=== PATIENT | male | born 1975 | race Caucasian/White ===

== ENCOUNTER 2017-07-11 11:55 | Day surgery (SDC) | payer OTHER ==
[~2017-07-11] VITALS: Ht 190.5 cm; Wt 105.1 kg
[2017-07-11] VITALS (8 sets, daily range): BP systolic 114–131; BP diastolic 74–87; PULSE 70–94; RESP 12–20; O2SAT 96–99
[~2017-07-11 11:55] MED LIST: CeFAZolin 2 Gm/50 mL D5W IV Premix IV SCH; Lactated Ringer's 1,000 ML IV SCH
[2017-07-11] MEDS ORDERED: fentaNYL-PF 50 mCg/mL 2 mL Inj ONE (11:56)
[2017-07-11] MEDS ORDERED: Ondansetron 2 mg/mL 2 mL Inj ONE (11:56)
[2017-07-11] MEDS ORDERED: Propofol 10,000 mCg/mL 20 mL Inj ONE (11:56)
[2017-07-11] MEDS ORDERED: Succinylcholine Chloride 20 mg/mL 5 mL Inj ONE (11:56)
[2017-07-11] MEDS ORDERED: Lactated Ringer's 1,000 ML IV ONE (12:30)
[2017-07-11] MEDS ORDERED: TRAZ-118 PO (13:07)
[2017-07-11] MEDS ORDERED: PRAZ2CAP2 PO (13:07)
[2017-07-11] MEDS ORDERED: VENL75TA3 PO (13:07)
[2017-07-11] MEDS ORDERED: Lactated Ringer's 500 ML IV PRN (16:42)
[2017-07-11] MEDS ORDERED: Lactated Ringer's 1,000 ML IV SCH (16:42)
--- NOTE | 2017-07-11 16:42 | PCM.HPANE ---
Patient Data Date of Service: Jul 11, 2017 Surgeon Admitting Provider: Attending Provider:Florentin Link MD Primary Care Physician:Kelvin Villalpando MD Other Provider:Grey Ritter Anesthesia Reason for Visit Right Clavicle Fracture Ht/WT & BMI Height (Feet): 6 Height (Inches): 3 Weight (Kilograms): 105.1 Body Mass Index 28.00 Allergies Coded Allergies: No Known Allergies (Unverified , 07/11/17) Past Anesthesia History Anesthesia History: Denies:: Abnormal Airway, Anesthesia Reactions, Difficult Intubation, Fam Anesthesia Reaction, Fam Malignant Hypertherm, Malignant Hyperthermia Diabetes History Hx Diabetes?: No MRSA MRSA: No Medications Home Meds Incl Beta Refugio: No Reported Medications Venlafaxine 75 Mg [id number] Mg PO TIDWM Ref 0 07/11/17 Prazosin 2 Mg Capsule2 Mg PO HS 07/11/17 Trazodone 100 Mg [id number] Mg PO HS Ref 0 07/11/17 History History of ENT Problems?: No HEENT History: Denies:: Abnormal Airway Difficult Intubation Dysphagia Hearing Problem Sinus Problem TMJ Denture Type: None Teeth Condition: Within Normal Limits Hx of Heart Problems?: No Cardiovascular History: Denies:: Cardiac Surgery Chest Pain Hypertension Hx of Respiratory Problem?: No Respiratory History: Positive for:: Use of C-PAP Machine (refused use) Denies:: Pneumonia Tuberculosis Hx Neurologic Problems?: No Neurological History: Denies:: Alzheimer's Disease CVA Dementia Dizziness Headaches Multiple Sclerosis Seizures TIA Hx of GI Problems?: No Hx of Problems?: No Genitourinary History: Denies:: HX of Hemodialysis Kidney Stones HX of Peritoneal Dialysis: No Male Hx: Denies:: Prostate Problems Scrotal Mass Testicular Surgery Skin History: Denies:: History Skin Disorders? Pressure Ulcers Hx Musculoskeletal Problems?: Yes Musculoskeletal History: Positive for:: Musculoskeletal Trauma (reason for admit) Denies:: Back Injury Degenerative Joint Fibromyalgia Joint Replacement Myasthenia Gravis Osteoarthritis Psycho Social History: Positive for:: Anxiety Hx Depression Hx Surgeries?: Yes (Shoulder surgery March 2017) Other History: Denies:: Cancer Endocrine Disease Hospitalization Thyroid Disease History Blood Transfusions: Positive for:: Accept Blood Products? Denies:: Blood Transfusions Hx Diabetes: No Hx Alcohol Use: NoHx Substance Use: NoHave You Smoked inLast 12 mo: Yes Approx How Many Cigarettes/day: 20 Stop/Bang Treated for Sleep Apnea?: Yes Do You Have a CPAP Machine?: No Did you bring your Machine? refuses CPAP therapy S-Snoring: Do You Snore Loudly: No T-Tired: feel tired, fatigued: No O-Obsered: Observed not breath: No P-Blood Pressure: treated: No B- Body Mass Index > 35 kg/m2: No A- Age over 50: No N- Neck Large Circumference: Yes G- Gender Male: Yes EVELINE Total Score: 2 Risk Assessment Category Category 1A: Patient has history of documented sleep apnea, and HAS NOT received any narcotic, sedative or anesthesia administration during this stay. Category 1B: Patient has history of documented sleep apnea, and HAS received any narcotic , sedative or anesthesia administration during this stay Category 2: Patient has SUSPECTED Obstructive Sleep Apnea, and HAS received any narcotic , sedative or anesthesia administration during this stay. Category 3: Patient has SUSPECTED Obstructive Sleep Apnea and HAS NOT received narcotic, sedative or anesthesia administration during this stay. Category 4: Outpatient in Procedural Areas with known sleep apnea or who screen positive for High Risk via the STOP/BANG questionnaire. Exam Exam Vital Signs Vital Signs Date Time Temp Pulse Resp B/P Pulse Ox O2 Delivery O2 Flow Rate FiO2 07/11/17 12:30 36.1 90 16 131/83 97 Room Air General Appearance: Alert, Oriented X3, Cooperative HEENT/AIRWAY: MP 1, Neck Movement (Full), Mouth Opening (Wide) Lungs: Clear to Auscultation, Normal Air Movement Heart: Regular Rate/Rhythm, Normal S1, Normal S2 Meds/Labs/Diagnostics Admission Meds Current Medications Lactated Ringer's (Lr) 1,000 ml @ ud STK-MED ONCE IV Last administered on 07/11t 12:30; Start 07/11/17 at 12:30; Stop 07/11/17 at 12:58; Status DC Plan Impression Patient chart reviewed, patient interviewed and anesthestic plan with risks, benefits, and alternatives discussed, and informed consent obtained. NPO per Anesth. Guidelines: Yes ASA Physical Status: ASA2 Mod Systemic Disease Anesthetic Plan: GA Bene/Risks/Altern/Consents: Yes HP Complete Prior to Induction: Yes Fam Lombardo MD Jul 11, 2017 15:58
[2017-07-11] MEDS ORDERED: Labetalol 5 mg/mL 20 mL Inj IV PRN (16:45)
[2017-07-11] MEDS ORDERED: MetoCLOpramide 5 mg/mL 2 mL Inj IVPUSH PRN (16:45)
[2017-07-11] MEDS ORDERED: Atropine 0.4 mg/mL Inj IVPUSH PRN (16:45)
[2017-07-11] MEDS ORDERED: Phenylephrine 10,000 mCg/mL Inj IVPUSH PRN (16:45)
[2017-07-11] MEDS ORDERED: hydrALAZINE 20 mg/mL Inj IVPUSH PRN (16:45)
[2017-07-11] MEDS ORDERED: EPHEDrine Sulfate 50 mg/mL Inj IVPUSH PRN (16:45)
[2017-07-11] MEDS ORDERED: Dexamethasone 4 mg/mL Inj IVPUSH PRN (16:45)
[2017-07-11] MEDS ORDERED: Ondansetron 2 mg/mL 2 mL Inj IVPUSH PRN (16:45)
[2017-07-11] MEDS ORDERED: Ropivacaine-PF 0.5% 30 mL Inj INJ ONE (16:49)
[2017-07-11] MEDS ORDERED: oxyCODONE-Acetamin 5-325 mg Tablet PO PRN (17:40)
--- NOTE | 2017-07-11 17:52 | PCM.ORTHOP ---
Orthopedic Operative Report Date of Service: Jul 11, 2017 Pre Operative Diagnosis Right clavicle nonunion Post Operative Diagnosis Same Procedure Right clavicle hardware removal, open reduction internal fixation with iliac crest autograft harvest Surgeon Surgeon: Florentin Link MD Assistants: Fide Agustin Indication for Procedure Right clavicle nonunion Findings Right clavicle hardware failure, nonunion Details of Procedure Procedure: Right clavicle hardware removal, osteotomy and nonunion takedown with open reduction internal fixation with iliac crest autograft bone grafting ( CPT 26319) Implant: Arthrex precontoured clavicle plate Anesthesia: general ETA Complications: none Estimated Blood Loss: 50 mL Findings: Right clavicle fracture nonunion. Fluoroscopic imaging after ORIF shows good alignment of left clavicle shaft with autograft Specimens: None Patient Status: Patient was extubated and taken to recovery room in stable condition. Narrative: Indications: Santy Lovell is a 41-year-old male with a history of a right clavicle fracture nonunion with pseudoarthrosis. A clear explanation was given to the patient regarding the condition present, and the available conservative and surgical options. It was emphasized that the risks and benefits of surgery include but are not limited to infection, wound healing problems, damage to adjacent structures such as nerves, blood vessels and tendons, residential disability and pain, arthritis, hypersensitivity, deep vein thrombosis, pulmonary embolism, broken hardware, failure of surgery, need for further procedures at time of surgery or later, cast related problems, loss of limb or life. The patient understood that given the longstanding nature of symptoms and that the patient would likely continue to have symptoms despite surgical intervention. The patient was given an explanation and the patient voiced understanding of what to expect after the procedure or surgery, the limitations in activities of daily living, the likely duration for post operative recovery and the instructions that are to be followed. At the end the patient was invited to seek clarification or ask further questions but there were none. The patient voiced understanding of the entire consultation. Description of Procedure: Patient taken to operating room and transferred to operating table in supine position. Time out was performed with both anesthesia and orthopaedics faculty present to confirm details of case to be performed. After time out performed, patient placed under general anesthesia and endotracheal tube secured into place. Once endotracheal tube secured, the patient was placed into the beach-chair position. Patient position was again checked to ensure all bony prominences adequately padded. The right arm, shoulder and clavicle was prepped and draped in the usual sterile fashion to the level of the tourniquet. An incision was made over the fracture site. Dissection was sharply performed down to bone. The previous hardware was removed. The bovie was used to clear soft tissue from the fracture site. Care was taken to avoid any neurovascular structures. There was an uninfected nonunion with pseudarthrosis noted. The fracture was reduced under direct visualization. The devitalized cortical chips were removed. The plate was then applied provisionally and secured to bone with a few solid screw purchase and locking screws secured to plate. Attention was then turned to the right iliac crest. A 4 cm incision within 5 cm of the anterior superior iliac spine was made. Dissection was carried over the iliac table. A 1 cm block was osteotomized and harvested for bone graft in addition to aspiration of the bone marrow (10 cc). 5 cc of Morphine were injected in the pelvic wound prior to closure in layers. The bone graft was then placed in the defect created from the malunion takedown at the fracture site of the clavicle. Fluoroscopy showed reduction of fracture. The wound was thoroughly irrigated by bulb irrigation. Hemostasis was obtained with electrocautery. The wound was closed in layers. The wound was cleaned and dressed with Adaptic, gauze, and tape. The patient was extubated without difficulty and transferred to the PACU in stable condition. CAFE WORKER SURGEON: During the operation, the services of physician health education assistant were medically indicated and necessary to provide exposure of the operative site for the surgical procedure and to maintain the limb in a proper position to carry out the operation safely and efficiently. Without the qualified assistant director of nursing being present, it would have extended the operative procedure and made the procedure technically more difficult to perform. Keep dressing clean dry and intact, do not remove dressing. Return to clinic in 10-14 days for follow-up with me for new steri-strips, obtain additional two- view x-rays of the affected clavicle. Continue sling for comfort and remove sling 3 times daily for elbow, wrist, hand ROM and shoulder pendulum exercises. Follow-up in 6 weeks postop with PA with x-rays and may release to full activity once radiographically healing noted. Please keep the affected extremity elevated when possible. You may use ice and/or heat as needed for comfort. Keep hip wound clean, dry and intact and do not get wet X 2 weeks. I discussed at length the risks, complications and implications of tobacco products and its effect on the treatment plan and outcomes. The patient has voiced understanding and has agreed to cease consumption of such products for a minimum of the duration of the entire course of treatment. Grafts, Implants: Implants-See Implant Record Complications There were no periprocedural complications identified. Condition Stable Anesthetic Administered: GA Catheters: None Output, Estimated Blood Loss: 50 Blood Admin during surgery: No Surgical Cast or Splint: Other Surgical Specimen Removed: No Specimen sent to Pathology: No copies to: Florentin Link MD, Christopher L MD Jul 11, 2017 17:52
[2017-07-11] MEDS: fentaNYL-PF 50 mCg/mL 2 mL Inj IVPUSH PRN ×2 (18:08→18:18)
[2017-07-11] MEDS: HYDROmorphone 1 mg/mL Inj IVPUSH PRN ×2 (18:08→18:18)
--- NOTE | 2017-07-11 18:29 | PCM.ANEP1 ---
Post Anesthesia PACU Phase 1 Assessment Vital Signs Vital Signs Date Time Temp Pulse Resp B/P Pulse Ox O2 Delivery O2 Flow Rate FiO2 07/11/17 18:27 91 14 127/83 98 Nasal Cannula 2 07/11/17 18:04 92 15 114/76 96 Room Air 07/11/17 18:00 36.0 94 14 118/77 96 Room Air 07/11/17 12:30 36.1 90 16 131/83 97 Room Air Anesthetic Administered: GA Level of Alertness: Sleepy, easy to arouse RUFF's with Equal Strength: Yes Pain: Yes Nausea or Vomiting: No CV Function & Hydration Stable: Yes Airway Device: Oxygen Delivery: Room Air Lungs: Normal Air Movement PACU Phase 2 Assessment Complications: No Follow up Care: No Patient Instructions Provided: N/A Danyel Bennett MD Jul 11, 2017 18:29
== END 2017-07-11 23:59 | disposition home or self-care (01) ==
LOC: SAS 11:55
PROVIDERS: ATTEND Orthopaedic Surgery
DX: S42.021K Displaced fracture of shaft of right clavicle, subsequent encounter for fracture with nonunion (principal); F41.8 Other specified anxiety disorders; F17.210 Nicotine dependence, cigarettes, uncomplicated
CPT/HCPCS: 20680; 23485; 76001; C1713; J0330; J0690; J1170; J2250; J2270; J2405; J2704; J2795; J3010; J7120